=== PATIENT | female | born 1985 | race Caucasian/White ===

== ENCOUNTER → 2016-09-29 | Outpatient (CLI) | payer OTHER ==
--- NOTE | 2016-09-29 11:26 | USB ---
Reason for exam: additional evaluation requested from abnormal screening. History: Patient has history of other cancer at age 22. Family history of breast cancer in paternal aunt, breast cancer in maternal aunt, breast cancer in maternal cousin at age 33, and breast cancer in maternal cousin at age 42. Indicated problem(s): lump or thickening and pain in the left breast. Physical Findings: Nurse did not find any significant physical abnormalities on exam. US Breast BILAT Left breast ultrasound includes all four quadrants, the retroareolar region and axilla. Finding demonstrate no cystic or solid lesion seen. Right breast ultrasound includes all four quadrants, the retroareolar region and axilla. Finding demonstrate no cystic or solid lesion seen. These results were verbally communicated with the patient and result sheet given to the patient on 09/29/16. ASSESSMENT: Negative, BI-RAD 1 RECOMMENDATION: Clinical management of both breasts. Manage patient on a clinical basis.
== END | disposition home or self-care (01) ==
LOC: RADUSWWP 08:44
PROVIDERS: ATTEND Obstetrics & Gynecology
DX: N63 Unspecified lump in breast (principal); N64.4 Mastodynia

== ENCOUNTER 2018-02-10 17:33 | Emergency (ER) | payer OTHER ==
[2018-02-10 18:56] VITALS: RESP 18
[2018-02-10] MEDS ORDERED: diphenhydrAMINE 50 MG/ML 1 ML VIAL IVP STA (20:42)
[2018-02-10] MEDS ORDERED: SODIUM CHLORIDE 0.9% 1,000 ML IV STA (20:42)
[2018-02-10 20:57] LABS: Basophils # (A) 0.1 k/uL (0-0.2); Basophils % (A) 1 %; Eosinophils # (A) 0.4 k/uL (0-0.7); Eosinophils % (A) 2 %; HCT 40.5 % (34.0-46.0); HGB 13.5 gm/dL (11.4-16.0); Lymphocytes # (A) 4.9 k/uL (1.0-4.8); Lymphocytes % (A) 32 %; MCH 29.8 pg (25.0-35.0); MCHC 33.4 g/dL (31.0-37.0); MCV 89.1 fL (80.0-100.0); Mean Platelet Volume 6.7; Monocytes # (A) 0.7 k/uL (0-1.0); Monocytes % (A) 4 %; Neutrophils # (A) 9.3 k/uL (1.3-7.7); Neutrophils % (A) 60 %; Platelet Count 300 k/uL (150-450); RBC 4.55 m/uL (3.80-5.40); RDW 13.2 % (11.5-15.5); WBC 15.5 k/uL (3.8-10.6)
--- NOTE | 2018-02-10 20:57 | ED ---
General Adult HPI - General Chief complaint: Headache Stated complaint: headache Time Seen by Provider: 02/10/18 20:01 Source: patient, RN notes reviewed Mode of arrival: ambulatory Limitations: no limitations - History of Present Illness Initial comments: 32-year-old female presents to the emergency department for a chief complaint of right-sided headache occurring earlier this morning. Patient states she has a history of migraines in the back of her head and has had "shots in her neck" by Dr. Muhammad. Patient states her vision is somewhat blurry in the right eye. She admits to photophobia and sensitivity to sound. Admits to nausea, denies vomiting. Patient states she was seen at a clinic earlier and was supposed to get blood work and a CAT scan done outpatient. She was told that if pain persists to come to the emergency department. Patient states she came to the emergency department instead of getting outpatient labs and CAT scan. Patient denies any trauma in the head. Patient states her uncle had a brain aneurysm in the past. Patient has no other complaints at this time including shortness of breath, chest pain, abdominal pain, nausea or vomiting, headache, or visual changes. - Related Data Home Medications Medication Instructions Recorded Confirmed Acetaminophen [Tylenol] 2,500 mg PO BID 02/10/18 02/10/18 Allergies Allergy/AdvReac Type Severity Reaction Status Date / Time bupropion HCl Allergy Unknown Verified 02/10/18 19:59 [From Wellbutrin] ibuprofen [From Motrin] Allergy Anaphylaxis Verified 02/10/18 19:59 Review of Systems ROS Statement: Those systems with pertinent positive or pertinent negative responses have been documented in the HPI. ROS Other: All systems not noted in ROS Statement are negative. Past Medical History Past Medical History: Cancer, CVA/TIA, Pneumonia Additional Past Medical History / Comment(s): endometriosis, CERIVAL, chronic back pain History of Any Multi-Drug Resistant Organisms: None Reported Past Surgical History: Appendectomy, Cholecystectomy, Hysterectomy, Tubal Ligation Past Psychological History: ADD/ADHD, Anxiety, Depression Smoking Status: Current every day smoker Past Alcohol Use History: Occasional Past Drug Use History: None Reported General Exam Limitations: no limitations General appearance: alert, in no apparent distress Head exam: Present: atraumatic, normocephalic, normal inspection Eye exam: Present: normal appearance, PERRL, EOMI. Absent: scleral icterus, conjunctival injection, periorbital swelling ENT exam: Present: normal exam, normal oropharynx, mucous membranes moist, TM's normal bilaterally, normal external ear exam, other (PMD noted on opening of the jaw. Tenderness to temp oral area) Neck exam: Present: normal inspection, full ROM. Absent: tenderness, meningismus, lymphadenopathy Respiratory exam: Present: normal lung sounds bilaterally. Absent: respiratory distress, wheezes, rales, rhonchi, stridor Cardiovascular Exam: Present: regular rate, normal rhythm, normal heart sounds. Absent: systolic murmur, diastolic murmur, rubs, gallop, clicks Extremities exam: Present: full ROM (Moving all extremities without difficulty) Neurological exam: Present: alert, oriented X3, CN II-XII intact Expanded Patient oriented to: Present: person, place, time Speech: Present: fluid speech Cranial nerves: EOM's Intact: Normal, Tongue Deviation: Normal Cerebellar function: Finger to Nose: Normal Upper motor neuron: Pronator Drift: Normal Sensory exam: Upper Extremity Light Touch: Normal, Upper Extremity Pin Prick: Normal, Lower Extremity Light Touch: Normal, Lower Extremity Pin Prick: Normal Motor strength exam: RUE: 5, LUE: 5, RLE: 5, LLE: 5 Eye Response: (4) open spontaneously Motor Response: (6) obeys commands Verbal Response: (5) oriented Nathaniel Total: 15 Psychiatric exam: Present: normal affect, normal mood Course Vital Signs 02/10/18 18:54 Temperature 97.9 F Pulse Rate 78 Respiratory 18 Rate Blood Pressure 120/83 O2 Sat by Pulse 98 Oximetry Medical Decision Making - Medical Decision Making This is a 32-year-old female with a past medical history for migraines. Patient presents to the emergency department with right-sided frontal headache starting this morning. Patient was seen in a clinic and told to come to the emergency Department if pain worsened or continued. On exam no focal neuro deficits. GCS 15. Patient does complain of blurry vision in the right eye. Patient complains of photophobia and sensitivity to sound. She also admits to nausea. Patient did have pain and tenderness along the right temporalis area ESR and CRP were ordered. ESR 2, CRP 11.2 which are both unremarkable. Patient does have a white count of 15. However normal heart rate and afebrile. Leukocytosis likely reactive. CT showed negative brain with and without evidence of intracranial hemorrhage. 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 Patient's family member at bedside and patient discussed this option which patient ultimately refused knowing the risks of aneurysm and hemorrhage. Patient is ALLERGIC to ibuprofen and is not sure if she can take Toradol. Patient was given morphine and Benadryl and Zofran which did help with patient' s pain. Patient does have a history of migraines although they usually occur in the back of her head. She has seen Dr. Muhammad for this in the past. Patient is likely experiencing a migraine at this time as she has unilateral pain, photophobia and sensitivity to sound along with nausea. She will take Tylenol at home and follow up with primary care or Dr. Muhammad in one to 2 days. Patient will return if she has any worsening symptoms - Lab Data Result diagrams: 02/10/18 20:49 02/10/18 20:49 Lab Results 02/10/18 02/10/18 Range/Units 20:49 20:49 WBC 15.5 H (3.8-10.6) k/uL RBC 4.55 (3.80-5.40) m/uL Hgb 13.5 (11.4-16.0) gm/dL Hct 40.5 (34.0-46.0) % MCV 89.1 (80.0-100.0) fL MCH 29.8 (25.0-35.0) pg MCHC 33.4 (31.0-37.0) g/dL RDW 13.2 (11.5-15.5) % Plt Count 300 (150-450) k/uL Neutrophils % 60 % Lymphocytes % 32 % Monocytes % 4 % Eosinophils % 2 % Basophils % 1 % Neutrophils # 9.3 H (1.3-7.7) k/uL Lymphocytes # 4.9 H (1.0-4.8) k/uL Monocytes # 0.7 (0-1.0) k/uL Eosinophils # 0.4 (0-0.7) k/uL Basophils # 0.1 (0-0.2) k/uL ESR 2 (0-20) mm/hr Sodium 140 (137-145) mmol/L Potassium 4.3 (3.5-5.1) mmol/L Chloride 107 (98-107) mmol/L Carbon Dioxide 27 (22-30) mmol/L Anion Gap 6 mmol/L BUN 14 (7-17) mg/dL Creatinine 0.65 (0.52-1.04) mg/dL Est GFR (CKD-EPI)AfAm >90 (>60 ml/min/1.73 sqM) Est GFR (CKD-EPI)NonAf >90 (>60 ml/min/1.73 sqM) Glucose 94 (74-99) mg/dL Calcium 9.5 (8.4-10.2) mg/dL Total Bilirubin 0.3 (0.2-1.3) mg/dL AST 14 (14-36) U/L ALT 21 (9-52) U/L Alkaline Phosphatase 48 (38-126) U/L C-Reactive Protein 11.2 H (<10.0) mg/L Total Protein 6.0 L (6.3-8.2) g/dL Albumin 3.6 (3.5-5.0) g/dL - Radiology Data Radiology results: report reviewed, image reviewed Disposition Clinical Impression: Headache Disposition: HOME SELF-CARE Instructions: Acute Headache (ED) Additional Instructions: Please follow up with primary care and Dr. Muhammad in one to 2 days. Please return to the emergency department if you have any worsening symptoms. Is patient prescribed a controlled substance at d/c from ED?: No Referrals: Nonstaff,Physician [Primary Care Provider] - 1-2 days Time of Disposition: 22:40
[2018-02-10 21:15] LABS: ALT 21 U/L (9-52); AST 14 U/L (14-36); Albumin 3.6 g/dL (3.5-5.0); Alkaline Phosphatase 48 U/L (38-126); Anion Gap 6 mmol/L; Blood Urea Nitrogen 14 mg/dL (7-17); C Reactive Protein 11.2 mg/L (<10.0); Calcium 9.5 mg/dL (8.4-10.2); Carbon Dioxide 27 mmol/L (22-30); Chloride 107 mmol/L (98-107); Glucose 94 mg/dL (74-99); Potassium 4.3 mmol/L (3.5-5.1); Sodium 140 mmol/L (137-145); Total Bilirubin 0.3 mg/dL (0.2-1.3)
[2018-02-10 21:38] LABS: Erythrocyte Sedimentation Rate 2 mm/hr (0-20)
[2018-02-10] MEDS ORDERED: MORPHINE SULFATE 4 MG/ML SYRINGE IVP STA (21:58)
[2018-02-10] MEDS ORDERED: ONDANSETRON 4 MG/2 ML VIAL IVP STA (21:58)
--- NOTE | 2018-02-10 22:07 | CT ---
EXAMINATION TYPE: CT brain wo con DATE OF EXAM: 02/10/2018 COMPARISON: None HISTORY: headache CT DLP: 1018.6 mGycm. Automated Exposure Control for Dose Reduction was Utilized. TECHNIQUE: CT scan of the head is performed without contrast. FINDINGS: Ventricles and sulci appear normal. There is no mass effect nor midline shift. There is no sign of intracranial hemorrhage. There is opacification of the left maxillary sinus with some expansi on into the nasopharynx. I see no bone destruction. IMPRESSION: Negative CT scan of the brain. Left maxillary sinus disease with possible developing mucocele. There is slight expansion of the medial wall of the left maxillary sinus.
[2018-02-10 23:27] VITALS: BP 123/88; PULSE 80; TEMP 97
== END 2018-02-10 23:27 | disposition home or self-care (01) ==
LOC: EC 17:33
DX: R51 Headache (principal); H53.8 Other visual disturbances; H53.149 Visual discomfort, unspecified; R11.0 Nausea; M54.9 Dorsalgia, unspecified; G89.29 Other chronic pain; F17.200 Nicotine dependence, unspecified, uncomplicated; Z85.848 Personal history of malignant neoplasm of other parts of nervous tissue; Z79.899 Other long term (current) drug therapy; Z88.6 Allergy status to analgesic agent; Z88.8 Allergy status to other drugs, medicaments and biological substances
CPT/HCPCS: 36415; 80053; 85652; 85025; 86140; 70450; 99284; 96374; 96375 ×2; 96361; J2270; J1200; J2405

== ENCOUNTER 2018-02-12 08:51 | Emergency (ER) | payer OTHER ==
[2018-02-12 08:54] VITALS: BP 128/81; PULSE 92; RESP 18; TEMP 97.9
[2018-02-12] MEDS ORDERED: KETOROLAC 60 MG/2 ML VIAL IM STA (09:58)
--- NOTE | 2018-02-12 09:58 | ED ---
General Adult HPI - General Chief complaint: Headache Stated complaint: headache Time Seen by Provider: 02/12/18 09:07 Source: patient, RN notes reviewed Mode of arrival: ambulatory Limitations: no limitations - History of Present Illness Initial comments: Patient 32-year-old female presents emergency room today with chief complaint of a headache. She states it started 4 days ago. Was seen here the emergency room for this headache 2 days ago had a CAT scan obtained. CT did show evidence for sinus infection. Patient states that she's not been getting better at home. They did discuss about LP which she refused. Patient states still expressing pressure upfront. Patient denies any other changes with headache. She admits to history of migraine but does admit that this feels different to her. Patient denies any recent fever, chills, shortness of breath, chest pain, back pain, abdominal pain, nausea or vomiting, numbness or tingling , dysuria or hematuria, constipation or diarrhea, visual changes, or any other complaints. - Related Data Home Medications Medication Instructions Recorded Confirmed Acetaminophen [Tylenol] 2,500 mg PO BID 02/10/18 02/10/18 Previous Rx's Medication Instructions Recorded Amoxicillin/Potassium Clav 1 each PO Q12HR #20 tab 02/12/18 [Augmentin 875-125 Tablet] Fluticasone Propionate [Flonase 1 - 2 spray EA NOSTRIL DAILY 5 02/12/18 Allergy Relief] Days ml Allergies Allergy/AdvReac Type Severity Reaction Status Date / Time bupropion HCl Allergy Unknown Verified 02/12/18 08:54 [From Wellbutrin] ibuprofen [From Motrin] Allergy Anaphylaxis Verified 02/12/18 08:54 Review of Systems ROS Statement: Those systems with pertinent positive or pertinent negative responses have been documented in the HPI. ROS Other: All systems not noted in ROS Statement are negative. Past Medical History Past Medical History: Cancer, CVA/TIA, Pneumonia Additional Past Medical History / Comment(s): endometriosis, CERIVAL, chronic back pain History of Any Multi-Drug Resistant Organisms: None Reported Past Surgical History: Appendectomy, Cholecystectomy, Hysterectomy, Tubal Ligation Past Psychological History: ADD/ADHD, Anxiety, Depression Smoking Status: Current every day smoker Past Alcohol Use History: Occasional Past Drug Use History: None Reported General Exam - General Exam Comments Initial Comments: General: The patient is awake and alert, in no distress, and does not appear acutely ill. Eye: Pupils are equal, round and reactive to light. Extra-ocular movements are intact. No nystagmus. There is normal conjunctiva bilaterally. No signs of icterus. Ears, nose, mouth and throat: There are moist mucous membranes and no oral lesions. Tender over both frontal and maxillary sinuses. Neck: The neck is supple, there is no tenderness or JVD. Cardiovascular: There is a regular rate and rhythm. No murmur, rub or gallop is appreciated. Respiratory: Lungs are clear to auscultation, respirations are non-labored, breath sounds are equal. No wheezes, stridor, rales, or rhonchi. Musculoskeletal: Normal ROM, no tenderness. Sensation intact. Strength 5/5. Pulses equal bilaterally 2+. Neurological: A&O x 3. CN II-XII intact, There are no obvious motor or sensory deficits. Coordination appears grossly intact. Speech is normal. Skin: Skin is warm and dry and no rashes or lesions are noted. Psychiatric: Cooperative, appropriate mood & affect, normal judgment. Limitations: no limitations Course Vital Signs 02/12/18 08:51 Temperature 97.9 F Pulse Rate 92 Respiratory 18 Rate Blood Pressure 128/81 O2 Sat by Pulse 99 Oximetry Medical Decision Making - Medical Decision Making Patient's recent CAT scan was reviewed does show evidence for Left maxillary sinus with possible developing mucocele. Patient does have tenderness over the sinuses. She does admit to headache located in the prone. She does admit to some congestion. Patient did have recent CT 2 days ago. Patient refused LP 2 days ago and states does not want this today. Patient was treated for sinus infection started on antibiotics of Augmentin, Flonase, advised over-the- counter Sudafed and Claritin. Advised follow-up the family doctor tomorrow return here to the emergency room for any other concerns. Patient given dose of Toradol here in the emergency room as she states she's had this in the past. She does admit to an ALLERGY ibuprofen. She states that when she was a child she had problems with her kidneys. She states was no respiratory issues with taking ibuprofen and never needed to be intubated. Disposition Clinical Impression: Acute sinusitis, Headache Disposition: HOME SELF-CARE Condition: Good Instructions: Sinusitis (ED) Additional Instructions: Please use medication as discussed. Please follow-up with family doctor in the next 2 days of symptoms have not improved. Please return to emergency room if the symptoms increase or worsen or for any other concerns. Prescriptions: Amoxicillin/Potassium Clav [Augmentin 875-125 Tablet] 1 each PO Q12HR #20 tab Fluticasone Propionate [Flonase Allergy Relief] 1 - 2 spray EA NOSTRIL DAILY 5 Days ml Is patient prescribed a controlled substance at d/c from ED?: No Referrals: Nonstaff,Physician [Primary Care Provider] - 1-2 days Time of Disposition: 09:57
== END 2018-02-12 10:13 | disposition home or self-care (01) ==
LOC: EC 08:51
DX: J01.90 Acute sinusitis, unspecified (principal); G89.29 Other chronic pain; F17.200 Nicotine dependence, unspecified, uncomplicated; Z88.6 Allergy status to analgesic agent; Z88.8 Allergy status to other drugs, medicaments and biological substances; Z79.891 Long term (current) use of opiate analgesic; Z85.41 Personal history of malignant neoplasm of cervix uteri; Z90.710 Acquired absence of both cervix and uterus
CPT/HCPCS: 99283; 96372; J1885

== ENCOUNTER 2018-03-02 07:03 | Emergency (ER) | payer OTHER ==
[2018-03-02 07:10] VITALS: BP 132/85; TEMP 97.5
--- NOTE | 2018-03-02 07:18 | ED ---
General Adult HPI - General Chief complaint: Extremity Injury, Lower Stated complaint: Poss Broken Foot Time Seen by Provider: 03/02/18 07:12 Source: patient, RN notes reviewed, old records reviewed Mode of arrival: ambulatory Limitations: no limitations - History of Present Illness Initial comments: 32-year-old female presenting for evaluation of left foot pain. Patient was at work approximately one hour ago dropped a staple gun onto her left foot primarily the distal second and third digit. She's had pain in this area. No laceration or abrasion. Patient has been ambulatory. She is concern for may be broken. She has no chronic medical problems or health issues. - Related Data Home Medications Medication Instructions Recorded Confirmed Acetaminophen [Tylenol] 2,500 mg PO BID 02/10/18 02/10/18 Previous Rx's Medication Instructions Recorded Amoxicillin/Potassium Clav 1 each PO Q12HR #20 tab 02/12/18 [Augmentin 875-125 Tablet] Fluticasone Propionate [Flonase 1 - 2 spray EA NOSTRIL DAILY 5 02/12/18 Allergy Relief] Days ml Allergies Allergy/AdvReac Type Severity Reaction Status Date / Time bupropion HCl Allergy Unknown Verified 03/02/18 07:07 [From Wellbutrin] ibuprofen [From Motrin] Allergy Anaphylaxis Verified 03/02/18 07:07 Review of Systems ROS Statement: Those systems with pertinent positive or pertinent negative responses have been documented in the HPI. ROS Other: All systems not noted in ROS Statement are negative. Past Medical History Past Medical History: Cancer, CVA/TIA, Pneumonia Additional Past Medical History / Comment(s): endometriosis, CERIVAL, chronic back pain History of Any Multi-Drug Resistant Organisms: None Reported Past Surgical History: Appendectomy, Cholecystectomy, Hysterectomy, Tubal Ligation Past Psychological History: ADD/ADHD, Anxiety, Depression Smoking Status: Current every day smoker Past Alcohol Use History: Occasional Past Drug Use History: None Reported General Exam Limitations: no limitations General appearance: alert, in no apparent distress Head exam: Present: atraumatic, normocephalic Eye exam: Present: normal appearance, PERRL ENT exam: Present: normal exam Neck exam: Present: normal inspection. Absent: tenderness Respiratory exam: Present: normal lung sounds bilaterally. Absent: respiratory distress Cardiovascular Exam: Present: regular rate, normal rhythm GI/Abdominal exam: Present: soft. Absent: distended, tenderness Extremities exam: Present: other (Left foot, pain with passive range of motion of the second and third digit. There is no swelling nor ecchymosis. No abrasion or laceration. No external signs of trauma. Range of motion at the ankle is within normal limits. There is no proximal injury.) Neurological exam: Present: alert, oriented X3 Skin exam: Present: warm, dry, intact. Absent: erythema Course Vital Signs 03/02/18 07:07 Temperature 97.5 F L Pulse Rate 96 Respiratory 18 Rate Blood Pressure 132/85 O2 Sat by Pulse 100 Oximetry Medical Decision Making - Medical Decision Making 32-year-old female with injury to the left foot probably the second and third toe. X-ray obtained, negative for acute fracture or dislocation. Patient will ice her foot, elevate, take Motrin for pain. Follow-up with primary care physician. May require repeat x-rays if pain persists. Disposition Clinical Impression: Contusion of foot, left Disposition: HOME SELF-CARE Condition: Good Instructions: Foot Contusion (ED) Is patient prescribed a controlled substance at d/c from ED?: No Referrals: Danilo Bui MD [Primary Care Provider] - 1-2 days Time of Disposition: 07:44
[2018-03-02 07:25] VITALS: PULSE 96; RESP 18
--- NOTE | 2018-03-02 07:40 | XR ---
EXAMINATION TYPE: XR foot complete LT DATE OF EXAM: 03/02/2018 CLINICAL HISTORY: Foot pain after injury. TECHNIQUE: Frontal, lateral, and oblique images of the left foot are obtained. COMPARISON: None FINDINGS: There is no acute fracture/dislocation evident in the left foot. Flexion in the toes is pr esent. The joint spaces in the left foot appear within normal limits. Mild diffuse subcutaneous edema along plantar surface is seen. IMPRESSION: There is no acute fracture or dislocation in the left foot.
== END 2018-03-02 08:07 | disposition home or self-care (01) ==
LOC: EC 07:03
DX: S90.32XA Contusion of left foot, initial encounter (principal); F17.200 Nicotine dependence, unspecified, uncomplicated; Z86.73 Personal history of transient ischemic attack (TIA), and cerebral infarction without residual deficits; Z85.41 Personal history of malignant neoplasm of cervix uteri; Z90.49 Acquired absence of other specified parts of digestive tract; Z90.710 Acquired absence of both cervix and uterus; Z98.51 Tubal ligation status; Z79.899 Other long term (current) drug therapy; Z88.6 Allergy status to analgesic agent; Z88.8 Allergy status to other drugs, medicaments and biological substances; W20.8XXA Other cause of strike by thrown, projected or falling object, initial encounter; Y92.69 Other specified industrial and construction area as the place of occurrence of the external cause; Y99.0 Civilian activity done for income or pay
CPT/HCPCS: 99284

== ENCOUNTER 2018-09-14 07:22 | Emergency (ER) | payer OTHER ==
[2018-09-14] MEDS ORDERED: ACETAMINOPHEN TAB 500 MG TAB PO STA (07:47)
--- NOTE | 2018-09-14 08:08 | ED ---
Abdominal Pain HPI - General Chief Complaint: Abdominal Pain Stated Complaint: Abd Pain Time Seen by Provider: 09/14/18 07:29 Source: patient Mode of arrival: ambulatory Limitations: no limitations - History of Present Illness Initial Comments: Patient is a 32-year-old female presenting to the ED with abdominal pain. Patients states pain started 2 days ago with increasing severity. She states the pain started on the left flank and progressed to the suprapubic region. She states the pain is not positional and "it hurts to breathe". She has not taken any medication to relieve the pain. She reports "neon yellow" stools but no hematochezia, constipation, diarrhea, nausea or vomiting. She does report increased urgency, frequency, dysuria and vaginal discharge. She reports being in a monogamous relationship but does have unprotected intercourse. She doesn't have a history of frequent UTIs or kidney stones. Her last period was in 2011. MD Complaint: abdominal pain, flank pain -: days(s) (2 days) Location: LUQ, LLQ, suprapubic, L flank Radiation: none Severity: moderate - Related Data Patient : No Previous Rx's Medication Instructions Recorded Amoxic-Pot Clav 500-125 mg 1 tab PO Q12HR #14 tab 09/14/18 [Augmentin 500-125 mg] Dicyclomine [Bentyl] 20 mg PO QID #21 tablet 09/14/18 Allergies Allergy/AdvReac Type Severity Reaction Status Date / Time bupropion HCl Allergy Unknown Verified 09/14/18 08:04 [From Wellbutrin] ibuprofen [From Motrin] Allergy Anaphylaxis Verified 09/14/18 08:04 methadone Allergy Unknown Verified 09/14/18 08:04 Review of Systems ROS Statement: Those systems with pertinent positive or pertinent negative responses have been documented in the HPI. ROS Other: All systems not noted in ROS Statement are negative. Past Medical History Past Medical History: Cancer, CVA/TIA, Pneumonia Additional Past Medical History / Comment(s): endometriosis, CERIVAL, chronic back pain History of Any Multi-Drug Resistant Organisms: None Reported Past Surgical History: Appendectomy, Cholecystectomy, Hysterectomy, Tubal Ligation Past Psychological History: ADD/ADHD, Anxiety, Depression Smoking Status: Current every day smoker Past Alcohol Use History: Occasional Past Drug Use History: None Reported General Exam Limitations: no limitations General appearance: alert, obese Head exam: Present: atraumatic, normocephalic, normal inspection Respiratory exam: Present: wheezes Cardiovascular Exam: Present: regular rate, normal rhythm, normal heart sounds GI/Abdominal exam: Present: soft, tenderness, normal bowel sounds Neurological exam: Present: alert, altered, oriented X3 Course Vital Signs 09/14/18 07:25 Temperature 97.9 F Pulse Rate 99 Respiratory 18 Rate Blood Pressure 138/89 O2 Sat by Pulse 99 Oximetry Medical Decision Making - Medical Decision Making 32-year-old female presenting for abdominal pain. Urine dip CBC and CMP were ordered. She had elevated white blood cell markers suggesting mild inflammation. Abdomen and pelvis CT with contrast was ordered that is suggestive of mild colitis. Patient was given 20 mg of Bentyl in the ED. She will be discharged with 7 days of Augmentin and Bentyl. Patient was instructed to return if symptoms worsen. - Lab Data Result diagrams: 09/14/18 08:00 09/14/18 08:00 Lab Results 09/14/18 09/14/18 09/14/18 Range/Units 08:00 08:00 08:00 WBC 13.7 H (3.8-10.6) k/uL RBC 4.88 (3.80-5.40) m/uL Hgb 14.2 (11.4-16.0) gm/dL Hct 43.6 (34.0-46.0) % MCV 89.3 (80.0-100.0) fL MCH 29.1 (25.0-35.0) pg MCHC 32.6 (31.0-37.0) g/dL RDW 13.3 (11.5-15.5) % Plt Count 375 (150-450) k/uL Neutrophils % 69 % Lymphocytes % 24 % Monocytes % 4 % Eosinophils % 2 % Basophils % 1 % Neutrophils # 9.4 H (1.3-7.7) k/uL Lymphocytes # 3.3 (1.0-4.8) k/uL Monocytes # 0.5 (0-1.0) k/uL Eosinophils # 0.2 (0-0.7) k/uL Basophils # 0.1 (0-0.2) k/uL Sodium 140 (137-145) mmol/L Potassium 4.5 (3.5-5.1) mmol/L Chloride 109 H (98-107) mmol/L Carbon Dioxide 24 (22-30) mmol/L Anion Gap 7 mmol/L BUN 11 (7-17) mg/dL Creatinine 0.48 L (0.52-1.04) mg/dL Est GFR (CKD-EPI)AfAm >90 (>60 ml/min/1.73 sqM) Est GFR (CKD-EPI)NonAf >90 (>60 ml/min/1.73 sqM) Glucose 89 (74-99) mg/dL Calcium 9.2 (8.4-10.2) mg/dL Total Bilirubin 0.4 (0.2-1.3) mg/dL AST 22 (14-36) U/L ALT 28 (9-52) U/L Alkaline Phosphatase 63 (38-126) U/L Total Protein 6.4 (6.3-8.2) g/dL Albumin 3.9 (3.5-5.0) g/dL Amylase 44 (30-110) U/L Lipase 112 (23-300) U/L Urine Color Light Yellow Urine Appearance Clear (Clear) Urine pH 6.5 (5.0-8.0) Ur Specific [place] 1.015 (1.001-1.035) Urine Protein Negative (Negative) Urine Glucose (UA) Negative (Negative) Urine Ketones Negative (Negative) Urine Blood Negative (Negative) Urine Nitrite Negative (Negative) Urine Bilirubin Negative (Negative) Urine Urobilinogen <2.0 (<2.0) mg/dL Ur Leukocyte Esterase Negative (Negative) Disposition Clinical Impression: Colitis, Abdominal pain Disposition: HOME SELF-CARE Condition: Stable Instructions (If sedation given, give patient instructions): Abdominal Pain (ED) Additional Instructions: Return to emergency department if symptoms worsen Prescriptions: Amoxic-Pot Clav 500-125 mg [Augmentin 500-125 mg] 1 tab PO Q12HR #14 tab Dicyclomine [Bentyl] 20 mg PO QID #21 tablet Is patient prescribed a controlled substance at d/c from ED?: No Referrals: Danilo Bui MD [Primary Care Provider] - 1-2 days Time of Disposition: 11:00
[2018-09-14 08:17] LABS: Basophils # (A) 0.1 k/uL (0-0.2); Basophils % (A) 1 %; Eosinophils # (A) 0.2 k/uL (0-0.7); Eosinophils % (A) 2 %; HCT 43.6 % (34.0-46.0); HGB 14.2 gm/dL (11.4-16.0); Lymphocytes # (A) 3.3 k/uL (1.0-4.8); Lymphocytes % (A) 24 %; MCH 29.1 pg (25.0-35.0); MCHC 32.6 g/dL (31.0-37.0); MCV 89.3 fL (80.0-100.0); Mean Platelet Volume 6.4; Monocytes # (A) 0.5 k/uL (0-1.0); Monocytes % (A) 4 %; Neutrophils # (A) 9.4 k/uL (1.3-7.7); Neutrophils % (A) 69 %; Platelet Count 375 k/uL (150-450); RBC 4.88 m/uL (3.80-5.40); RDW 13.3 % (11.5-15.5); WBC 13.7 k/uL (3.8-10.6)
[2018-09-14 08:18] LABS: Appearance,Urine Clear (Clear); Bilirubin,Urine Negative (Negative); Blood,Urine Negative (Negative); Color,Urine Light Yellow; Glucose,Urine (UA) Negative (Negative); Ketones,Urine Negative (Negative); Leukocyte Esterase,Urine Negative (Negative); Nitrite,Urine Negative (Negative); PH, Urine 6.5 (5.0-8.0); Protein,Urine Negative (Negative); Specific Gravity,Urine 1.015 (1.001-1.035); Urobilinogen,Urine <2.0 mg/dL (<2.0)
[2018-09-14 08:26] LABS: ALT 28 U/L (9-52); AST 22 U/L (14-36); Albumin 3.9 g/dL (3.5-5.0); Alkaline Phosphatase 63 U/L (38-126); Amylase 44 U/L (30-110); Anion Gap 7 mmol/L; Blood Urea Nitrogen 11 mg/dL (7-17); Calcium 9.2 mg/dL (8.4-10.2); Carbon Dioxide 24 mmol/L (22-30); Chloride 109 mmol/L (98-107); Glucose 89 mg/dL (74-99); Lipase 112 U/L (23-300); Potassium 4.5 mmol/L (3.5-5.1); Sodium 140 mmol/L (137-145); Total Bilirubin 0.4 mg/dL (0.2-1.3); Total Protein 6.4 g/dL (6.3-8.2)
--- NOTE | 2018-09-14 09:54 | CT ---
EXAMINATION TYPE: CT abdomen pelvis w con DATE OF EXAM: 09/14/2018 HISTORY: Abdominal pain CT DLP: 1590.1mGycm Automated Exposure Control for Dose Reduction was Utilized. CONTRAST: CT scan of the abdomen and pelvis is performed with IV Contrast, patient injected with 100 ml mL of I sovue 300. COMPARISON: 03/25/2015 FINDINGS: LUNG BASES: No significant abnormality is appreciated. LIVER/GB: Hepatic parenchyma is diffusely hypoattenuated in comparison to that of the spleen, most co mmonly seen in hepatic steatosis. This finding limits evaluation for hepatic masses. No gross evidenc e of hepatic mass is seen. No intrahepatic biliary ductal dilatation. Gallbladder surgically absent. PANCREAS: No significant abnormality is seen. SPLEEN: No significant abnormality is seen. Small splenules are seen adjacent to the [place] spleen. ADRENALS: No significant abnormality is seen. KIDNEYS: No significant abnormality is seen. BOWEL: Prior appendectomy has been performed. There is a long segment slight bowel wall thickening of the sigmoid and descending colon such as on coronal series 202 image 43. This may relate to incomple te distention or mild colitis. UTERUS/ADNEXA: Uterus is surgically absent. Previously seen left ovarian cystic lesion on the exam of 2014 measured up to 3.5 cm and again measures up to 3.5 x 3.2 cm. LYMPH NODES: No greater than 1cm abdominal or pelvic lymph nodes are appreciated. OSSEOUS STRUCTURES: No significant abnormality is seen. IMPRESSION: 1. Very mild long segment bowel wall thickening of the descending and sigmoid colon could relate to i ncomplete distention or mild acute uncomplicated colitis. Correlate with clinical symptoms. 2. Stable left adnexal cystic lesion in comparison to the exam of 2015 measuring up to 3.5 cm. 3. Hepatic steatosis.
[2018-09-14] MEDS ORDERED: DICYCLOMINE 10 MG/ML 2 ML AMP IM STA (10:26)
[2018-09-14 11:20] VITALS: BP 132/81; PULSE 88; RESP 16; TEMP 97.7
== END 2018-09-14 11:19 | disposition home or self-care (01) ==
LOC: EC 07:22
DX: K52.9 Noninfective gastroenteritis and colitis, unspecified (principal); N89.8 Other specified noninflammatory disorders of vagina; R30.0 Dysuria; R39.15 Urgency of urination; F17.200 Nicotine dependence, unspecified, uncomplicated; Z86.73 Personal history of transient ischemic attack (TIA), and cerebral infarction without residual deficits; Z85.41 Personal history of malignant neoplasm of cervix uteri; Z87.01 Personal history of pneumonia (recurrent); Z87.42 Personal history of other diseases of the female genital tract; Z90.49 Acquired absence of other specified parts of digestive tract; Z90.710 Acquired absence of both cervix and uterus; Z98.51 Tubal ligation status; Z88.8 Allergy status to other drugs, medicaments and biological substances
CPT/HCPCS: 36415; 80053; 82150; 83690; 85025; 81003; 74177; 99284; 96372; J0500; Q9967

== ENCOUNTER 2018-12-19 12:49 | Emergency (ER) | payer OTHER ==
[2018-12-19 13:01] VITALS: TEMP 97.9
[2018-12-19] MEDS ORDERED: SODIUM CHLORIDE 0.9% 1,000 ML IV STA (13:09)
[2018-12-19] MEDS ORDERED: SODIUM CHLORIDE 0.9% 500 ML 500 ML IV STA (13:09)
[2018-12-19] MEDS ORDERED: MAG HYDROX/AL HYDROX/SIMETH 30 ML, HYOSCYAMINE ELIXIR 10 ML, CIMETIDINE HCL 300 MG PO STA ×3 (13:26)
[2018-12-19 13:59] LABS: Basophils # (A) 0.1 k/uL (0-0.2); Basophils % (A) 1 %; Eosinophils # (A) 0.3 k/uL (0-0.7); Eosinophils % (A) 2 %; HCT 44.5 % (34.0-46.0); HGB 14.7 gm/dL (11.4-16.0); Lymphocytes # (A) 3.7 k/uL (1.0-4.8); Lymphocytes % (A) 24 %; MCH 28.8 pg (25.0-35.0); MCHC 33.1 g/dL (31.0-37.0); MCV 87.1 fL (80.0-100.0); Mean Platelet Volume 6.4; Monocytes # (A) 0.6 k/uL (0-1.0); Monocytes % (A) 4 %; Neutrophils # (A) 10.7 k/uL (1.3-7.7); Neutrophils % (A) 69 %; Platelet Count 376 k/uL (150-450); RBC 5.11 m/uL (3.80-5.40); RDW 13.3 % (11.5-15.5); WBC 15.5 k/uL (3.8-10.6)
[2018-12-19 14:03] LABS: Appearance,Urine Cloudy (Clear); Bilirubin,Urine Negative (Negative); Blood,Urine Negative (Negative); Color,Urine Yellow; Glucose,Urine (UA) Negative (Negative); Ketones,Urine Negative (Negative); Leukocyte Esterase,Urine Negative (Negative); Mucus,Urine Moderate /hpf; Nitrite,Urine Negative (Negative); PH, Urine 5.5 (5.0-8.0); Protein,Urine Negative (Negative); RBC,Urine <1 /hpf (0-5); Specific Gravity,Urine 1.023 (1.001-1.035); Squamous Epithelial Cell,Urine 8 /hpf (0-4); Urobilinogen,Urine <2.0 mg/dL (<2.0)
[2018-12-19 14:09] LABS: ALT 39 U/L (9-52); AST 35 U/L (14-36); African American GFR (CKD) >90 (>60 ml/min/1.73 sqM); Albumin 4.1 g/dL (3.5-5.0); Alkaline Phosphatase 75 U/L (38-126); Amylase 58 U/L (30-110); Anion Gap 10 mmol/L; Blood Urea Nitrogen 10 mg/dL (7-17); Calcium 9.5 mg/dL (8.4-10.2); Carbon Dioxide 25 mmol/L (22-30); Chloride 104 mmol/L (98-107); Glucose 82 mg/dL (74-99); Potassium 4.3 mmol/L (3.5-5.1); Sodium 139 mmol/L (137-145); Total Bilirubin 0.5 mg/dL (0.2-1.3)
--- NOTE | 2018-12-19 14:18 | ED ---
Chest Pain HPI - General Chief Complaint: Chest Pain Stated Complaint: chest pain, dizziness Time Seen by Provider: 12/19/18 13:09 Source: patient, RN notes reviewed Mode of arrival: ambulatory Limitations: no limitations - History of Present Illness Initial Comments: This a 33-year-old female presents emergency Department chief complaint of nausea vomiting diarrhea. Patient states symptoms started late Tuesday. Patient states it started with nausea and diarrhea. Patient has been vomiting and unable to give him down. Patient states she is a burning sensation from her throat down to her upper stomach. Patient does have a history of GERD but has not taken anything a long period time. Denies any hematemesis or coffee-ground emesis. Denies any melena or hematochezia. Denies any fevers or chills. She states she has no other chest pain other than the burning in her chest. She denies any chance . - Related Data Previous Rx's Medication Instructions Recorded Omeprazole 40 mg PO DAILY #14 capsule. 12/19/18 Ondansetron Odt [Zofran Odt] 4 mg PO Q8HR PRN #10 tab 12/19/18 Allergies Allergy/AdvReac Type Severity Reaction Status Date / Time bupropion HCl Allergy Unknown Verified 12/19/18 14:07 [From Wellbutrin] ibuprofen [From Motrin] Allergy Anaphylaxis Verified 12/19/18 14:07 methadone Allergy Unknown Verified 12/19/18 14:07 Review of Systems ROS Statement: Those systems with pertinent positive or pertinent negative responses have been documented in the HPI. ROS Other: All systems not noted in ROS Statement are negative. EKG Findings - EKG Comments: EKG Findings:: EKG performed at 13:37 normal sinus rhythm rate of 85 SC 158 QRS 90 QT/QTC 386/459 Past Medical History Past Medical History: Cancer, CVA/TIA, Pneumonia Additional Past Medical History / Comment(s): endometriosis, CERIVAL, chronic back pain History of Any Multi-Drug Resistant Organisms: None Reported Past Surgical History: Appendectomy, Cholecystectomy, Hysterectomy, Tubal Ligation Past Psychological History: ADD/ADHD, Anxiety, Depression Smoking Status: Current every day smoker Past Alcohol Use History: Occasional Past Drug Use History: None Reported General Exam Limitations: no limitations General appearance: alert, in no apparent distress Head exam: Present: atraumatic, normocephalic, normal inspection Eye exam: Present: normal appearance, PERRL, EOMI. Absent: scleral icterus, co njunctival injection, periorbital swelling ENT exam: Present: normal exam, normal oropharynx, mucous membranes moist Neck exam: Present: normal inspection, full ROM. Absent: tenderness, meningismus, lymphadenopathy Respiratory exam: Present: normal lung sounds bilaterally. Absent: respiratory distress, wheezes, rales, rhonchi, stridor Cardiovascular Exam: Present: regular rate, normal rhythm, normal heart sounds. Absent: systolic murmur, diastolic murmur, rubs, gallop, clicks GI/Abdominal exam: Present: soft, tenderness (Mild epigastric), normal bowel sounds. Absent: distended, guarding, rebound, rigid Back exam: Absent: CVA tenderness (R), CVA tenderness (L) Neurological exam: Present: alert, oriented X3, CN II-XII intact Skin exam: Present: warm, dry, intact, normal color. Absent: rash Course Vital Signs 12/19/18 12/19/18 12:59 13:10 Temperature 97.9 F Pulse Rate 89 Pulse Rate [ 90 Team Lead ] Respiratory 16 Rate Blood Pressure 137/84 O2 Sat by Pulse 97 Oximetry - Reevaluation(s) Reevaluation #1: Patient reevaluated states that her symptoms have completely resolved with GI cocktail. Chest Pain MDM - MDM 33-year-old female presented for nausea vomiting diarrhea burning of her chest. Her symptoms are related to esophagitis, reflux. Her symptoms did resolve with GI cocktail. Patient will be discharged with Zofran and omeprazole. Return parameters were discussed. Disposition Clinical Impression: Gastroenteritis, Esophagitis, GERD (gastroesophageal reflux disease) Disposition: HOME SELF-CARE Condition: Stable Instructions (If sedation given, give patient instructions): Gastroesophageal Reflux Disease (ED) Additional Instructions: Please return to the Emergency Department if symptoms worsen or any other concerns. Prescriptions: Omeprazole 40 mg PO DAILY #14 capsule. Ondansetron Odt [Zofran Odt] 4 mg PO Q8HR PRN #10 tab PRN Reason: Nausea Is patient prescribed a controlled substance at d/c from ED?: No Referrals: Danilo Bui MD [Primary Care Provider] - 1-2 days Time of Disposition: 14:54
--- NOTE | 2018-12-19 14:36 | XR ---
EXAMINATION TYPE: XR chest 2V DATE OF EXAM: 12/19/2018 COMPARISON: 11/12/2013 HISTORY: Chest pain and dizziness TECHNIQUE: Frontal and lateral views of the chest are obtained. FINDINGS: There is no focal air space opacity, pleural effusion, or pneumothorax seen. The cardiac silhouette size is within normal limits. The osseous structures are intact. IMPRESSION: No acute cardiopulmonary process.
--- NOTE | 2018-12-19 14:39 | XR ---
EXAMINATION TYPE: XR KUB DATE OF EXAM: 12/19/2018 2:33 PM CLINICAL HISTORY: Abdominal pain and dizziness TECHNIQUE: Upright and supine images of the abdomen were obtained. COMPARISON: 03/25/2015. FINDINGS: Cholecystectomy clips are seen. No dilated large or small bowel. Scattered few air-fluid le vels are seen in nondilated bowel, a physiologic amount. No pneumoperitoneum. Very mild dextro scolio sis the lumbar spine. Osseous structures appear intact. Lung bases are well aerated. IMPRESSION: Nonobstructive bowel gas pattern.
[2018-12-19] MEDS ORDERED: METOCLOPRAMIDE 5 MG/ML 2 ML VIAL IVP STA (14:51)
[2018-12-19] MEDS ORDERED: diphenhydrAMINE 50 MG/ML 1 ML VIAL IVP STA (14:51)
[2018-12-19] MEDS ORDERED: FAMOTIDINE 20 MG/2 ML VIAL IV STA (14:52)
[2018-12-19 15:21] VITALS: BP 135/97; PULSE 74; RESP 18
== END 2018-12-19 15:44 | disposition home or self-care (01) ==
LOC: EC 12:49
DX: K52.9 Noninfective gastroenteritis and colitis, unspecified (principal); K21.0 Gastro-esophageal reflux disease with esophagitis; F17.200 Nicotine dependence, unspecified, uncomplicated; Z88.6 Allergy status to analgesic agent; Z88.8 Allergy status to other drugs, medicaments and biological substances; Z86.73 Personal history of transient ischemic attack (TIA), and cerebral infarction without residual deficits
CPT/HCPCS: 36415; 71046; 74018; 80053; 81001; 82150; 83690; 84484; 85025; 93005; 96361; 96374; 96375; 99285

== ENCOUNTER 2019-01-23 08:14 | Emergency (ER) | payer OTHER ==
--- NOTE | 2019-01-23 08:16 | ED ---
Abdominal Pain HPI - General Stated Complaint: rt sided abd pain - History of Present Illness Initial Comments: 33yo female with history of GERD patient presenting today for cc of mid/right upper abdominal pain x 2 days. Patient states she has had a sharp pain in the right to mid upper abdomen for the past 2 days. Patient states it radiates to her back at time. Patient denies chest pain or SOB. Patient states she is not experiencing any nausea vomiting or diarrhea. Patient denies any melena hematochezia. Patient denies any consistent use of NSAIDs or alcohol. Patient denies history of pancreatitis. Patient denies any specific alleviating or aggravating factors. Patient states she does not have a gallbladder. Patient denies any pleuritic pain with deep inspiration. Remaining review of system negative. Upon arrival patient appears well signs of acute distress. - Related Data Previous Rx's Medication Instructions Recorded Pantoprazole Sodium [Protonix] 40 mg PO DAILY 7 Days #14 tab 01/23/19 Allergies Allergy/AdvReac Type Severity Reaction Status Date / Time bupropion HCl Allergy Unknown Verified 01/23/19 09:43 [From Wellbutrin] ibuprofen [From Motrin] Allergy Anaphylaxis Verified 01/23/19 09:43 methadone Allergy Unknown Verified 01/23/19 09:43 Review of Systems ROS Statement: Those systems with pertinent positive or pertinent negative responses have been documented in the HPI. ROS Other: All systems not noted in ROS Statement are negative. Past Medical History Past Medical History: Cancer, CVA/TIA, Pneumonia Additional Past Medical History / Comment(s): endometriosis, CERIVAL, chronic back pain History of Any Multi-Drug Resistant Organisms: None Reported Past Surgical History: Appendectomy, Cholecystectomy, Hysterectomy, Tubal Ligation Past Psychological History: ADD/ADHD, Anxiety, Depression Smoking Status: Current every day smoker Past Alcohol Use History: Occasional Past Drug Use History: None Reported General Exam - General Exam Comments Initial Comments: General: The patient is awake and alert, in no distress, and does not appear acutely ill. Eye: +3 mm pupils are equal, round and reactive to light, extra-ocular movements are intact. No nystagmus. There is normal conjunctiva bilaterally. No signs of icterus. Cardiovascular: There is a regular rate and rhythm. No murmur, rub or gallop is appreciated. Respiratory: Lungs are clear to auscultation, respirations are non-labored, breath sounds are equal. No wheezes, stridor, rales, or rhonchi. Gastrointestinal: Soft, non-distended, tenderness to palpation of the epigastric, mid/right upper quadrant fo the abdomen, which is without masses or organomegaly noted. There is no rebound or guarding present. Bowel sounds are unremarkable. Musculoskeletal: Normal ROM, no tenderness. Strength 5/5. Sensation intact. Radial pulses equal bilaterally 2+. Neurological: A&O x 3. CN II-XII intact, There are no obvious motor or sensory deficits. Coordination appears grossly intact. Speech is normal. Skin: Skin is warm and dry and no rashes or lesions are noted. Psychiatric: Cooperative, appropriate mood & affect, normal judgment. Course Vital Signs 01/23/19 01/23/19 08:16 10:21 Temperature 98.1 F Pulse Rate 90 85 Respiratory 18 14 Rate Blood Pressure 125/86 124/82 O2 Sat by Pulse 99 98 Oximetry Medical Decision Making - Medical Decision Making 33-year-old female presented for chief complaint of upper abdominal pain. Patient has history of previous cholecystectomy. Patient does not appear peritoneal on examination. Patient CT revealed no acute process no pneumoperitoneum. Patient's symptoms appear consistent with possible peptic ulcer. Patient was given Protonix. Patient has previously had a prescription for protonix no current medications. Patient does have history of GERD. I educated patient on proper diet as well as return parameters and importance of GI follow-up patient verbalizes understanding. Patient's laboratory studies are stable. I discussed the case obtained by Dr. Pimentel at this time is agreeable care plan discharge. Patient is agreeable to plan discharge as well. - Lab Data Result diagrams: 01/23/19 08:26 01/23/19 08:26 Lab Results 01/23/19 01/23/19 01/23/19 Range/Units 08:26 08:26 08:26 WBC 15.7 H (3.8-10.6) k/uL RBC 5.11 (3.80-5.40) m/uL Hgb 15.1 (11.4-16.0) gm/dL Hct 44.9 (34.0-46.0) % MCV 87.9 (80.0-100.0) fL MCH 29.6 (25.0-35.0) pg MCHC 33.7 (31.0-37.0) g/dL RDW 14.8 (11.5-15.5) % Plt Count 398 (150-450) k/uL Neutrophils % 65 % Lymphocytes % 27 % Monocytes % 4 % Eosinophils % 2 % Basophils % 1 % Neutrophils # 10.2 H (1.3-7.7) k/uL Lymphocytes # 4.2 (1.0-4.8) k/uL Monocytes # 0.6 (0-1.0) k/uL Eosinophils # 0.4 (0-0.7) k/uL Basophils # 0.1 (0-0.2) k/uL Sodium 139 (137-145) mmol/L Potassium 4.2 (3.5-5.1) mmol/L Chloride 107 (98-107) mmol/L Carbon Dioxide 22 (22-30) mmol/L Anion Gap 10 mmol/L BUN 10 (7-17) mg/dL Creatinine 0.58 (0.52-1.04) mg/dL Est GFR (CKD-EPI)AfAm >90 (>60 ml/min/1.73 sqM) Est GFR (CKD-EPI)NonAf >90 (>60 ml/min/1.73 sqM) Glucose 95 (74-99) mg/dL Calcium 9.3 (8.4-10.2) mg/dL Total Bilirubin 0.2 (0.2-1.3) mg/dL AST 27 (14-36) U/L ALT 31 (9-52) U/L Alkaline Phosphatase 75 (38-126) U/L Total Protein 6.9 (6.3-8.2) g/dL Albumin 4.0 (3.5-5.0) g/dL Lipase 160 (23-300) U/L Urine Color Yellow Urine Appearance Clear (Clear) Urine pH 5.5 (5.0-8.0) Ur Specific [place] 1.015 (1.001-1.035) Urine Protein Negative (Negative) Urine Glucose (UA) Negative (Negative) Urine Ketones Negative (Negative) Urine Blood Negative (Negative) Urine Nitrite Negative (Negative) Urine Bilirubin Negative (Negative) Urine Urobilinogen <2.0 (<2.0) mg/dL Ur Leukocyte Esterase Negative (Negative) Disposition Clinical Impression: Right upper quadrant abdominal pain Disposition: HOME SELF-CARE Condition: Good Instructions (If sedation given, give patient instructions): Peptic Ulcer (ED), Abdominal Pain (ED) Additional Instructions: Please use medication as discussed. Please follow-up with family doctor in the next 2 days, recommend gastroenterology follow-up. Please avoid use of ibuprofen, alcohol, spicy foods, chocolate, coffe. Please return to emergency room if the symptoms increase or worsen or for any other concerns. Prescriptions: Pantoprazole Sodium [Protonix] 40 mg PO DAILY 7 Days #14 tab Is patient prescribed a controlled substance at d/c from ED?: No Referrals: Danilo Bui MD [Primary Care Provider] - 1-2 days Keena Stockton MD [STAFF PHYSICIAN] - 1-2 days Time of Disposition: 09:41
[2019-01-23 08:17] VITALS: TEMP 98.1
[2019-01-23 08:40] LABS: Appearance,Urine Clear (Clear); Basophils # (A) 0.1 k/uL (0-0.2); Basophils % (A) 1 %; Bilirubin,Urine Negative (Negative); Blood,Urine Negative (Negative); Color,Urine Yellow; Eosinophils # (A) 0.4 k/uL (0-0.7); Eosinophils % (A) 2 %; Glucose,Urine (UA) Negative (Negative); HCT 44.9 % (34.0-46.0); HGB 15.1 gm/dL (11.4-16.0); Ketones,Urine Negative (Negative); Leukocyte Esterase,Urine Negative (Negative); Lymphocytes # (A) 4.2 k/uL (1.0-4.8); Lymphocytes % (A) 27 %; MCH 29.6 pg (25.0-35.0); MCHC 33.7 g/dL (31.0-37.0); MCV 87.9 fL (80.0-100.0); Mean Platelet Volume 6.6; Monocytes # (A) 0.6 k/uL (0-1.0); Monocytes % (A) 4 %; Neutrophils # (A) 10.2 k/uL (1.3-7.7); Neutrophils % (A) 65 %; Nitrite,Urine Negative (Negative); PH, Urine 5.5 (5.0-8.0); Platelet Count 398 k/uL (150-450); Protein,Urine Negative (Negative); RBC 5.11 m/uL (3.80-5.40); RDW 14.8 % (11.5-15.5); Specific Gravity,Urine 1.015 (1.001-1.035); Urobilinogen,Urine <2.0 mg/dL (<2.0); WBC 15.7 k/uL (3.8-10.6)
[2019-01-23 08:54] LABS: ALT 31 U/L (9-52); AST 27 U/L (14-36); African American GFR (CKD) >90 (>60 ml/min/1.73 sqM); Alkaline Phosphatase 75 U/L (38-126); Anion Gap 10 mmol/L; Blood Urea Nitrogen 10 mg/dL (7-17); Calcium 9.3 mg/dL (8.4-10.2); Carbon Dioxide 22 mmol/L (22-30); Chloride 107 mmol/L (98-107); Glucose 95 mg/dL (74-99); Potassium 4.2 mmol/L (3.5-5.1); Sodium 139 mmol/L (137-145); Total Bilirubin 0.2 mg/dL (0.2-1.3); Total Protein 6.9 g/dL (6.3-8.2)
--- NOTE | 2019-01-23 09:28 | CT ---
EXAMINATION TYPE: CT abdomen pelvis w con DATE OF EXAM: 01/23/2019 HISTORY: RUQ pain for [address] DLP: 1790.3mGycm Automated Exposure Control for Dose Reduction was Utilized. CONTRAST: CT scan of the abdomen and pelvis is performed with IV Contrast, patient injected with 100 mL of Isov ue 300. COMPARISON: None. FINDINGS: LUNG BASES: No significant abnormality is appreciated. LIVER/GB: Hepatic parenchyma is diffusely hypoattenuated in comparison to that of the spleen, most co mmonly seen in hepatic steatosis. This finding limits evaluation for hepatic masses. Diffuse heteroge neity with geographic areas of more relative sparing are seen throughout the hepatic parenchyma. Ther e is a subtle nodular contour of the inferior right hepatic lobe such as on image 45. No gross eviden ce of hepatic mass is seen. No intrahepatic biliary ductal dilatation. Gallbladder is surgically abse nt. PANCREAS: No significant abnormality is seen. SPLEEN: Splenules are seen adjacent to the [place] spleen. ADRENALS: No significant abnormality is seen. KIDNEYS: No significant abnormality is seen. BOWEL: Appendix is surgically absent. Few scattered colonic diverticula are seen without pericolonic fat stranding. Transverse colon is nondistended. No dilated large or small bowel is seen. Small bowel loops are clustered in the left upper quadrant although bowel is seen in the right lower quadrant an d there is no reversal of the superior mesenteric artery and vein. UTERUS/ADNEXA: Uterus is surgically absent. Smaller size or change in morphology of the left adnexal mass seen on exams dating back to thousand 15. This currently measures 3.0 x 2.5 cm and previously me asured 3.5 x 3.2 cm on the exam of 09/14/2018. LYMPH NODES: No greater than 1cm abdominal or pelvic lymph nodes are appreciated. OSSEOUS STRUCTURES: No significant abnormality is seen. IMPRESSION: 1. Incomplete distention of the transverse colon giving the appearance of bowel wall thickening. This could relate to incomplete distention or mild acute uncomplicated colitis. 2. Moderate degree hepatic steatosis. There is slight nodularity of the hepatic contour and considera tion could be given to nonalcoholic steatohepatitis.
[2019-01-23] MEDS ORDERED: FAMOTIDINE 20 MG TAB PO STA (09:31)
[2019-01-23] MEDS ORDERED: MORPHINE SULFATE 2 MG/ML SYRINGE IVP STA (09:31)
[2019-01-23] MEDS ORDERED: MAG HYDROX/AL HYDROX/SIMETH 30 ML, HYOSCYAMINE ELIXIR 10 ML, CIMETIDINE HCL 300 MG, LID... PO STA ×4 (09:40)
[2019-01-23 10:22] VITALS: BP 124/82; PULSE 85; RESP 14
== END 2019-01-23 10:15 | disposition home or self-care (01) ==
LOC: EC 08:14
DX: R10.11 Right upper quadrant pain (principal); F17.200 Nicotine dependence, unspecified, uncomplicated; Z86.73 Personal history of transient ischemic attack (TIA), and cerebral infarction without residual deficits; Z90.49 Acquired absence of other specified parts of digestive tract; Z90.710 Acquired absence of both cervix and uterus; Z98.51 Tubal ligation status; Z85.9 Personal history of malignant neoplasm, unspecified; Z88.8 Allergy status to other drugs, medicaments and biological substances; Z88.6 Allergy status to analgesic agent; Z88.5 Allergy status to narcotic agent
CPT/HCPCS: 36415; 80053; 83690; 85025; 81003; 74177; 99284; 96374; J2270; Q9967

== ENCOUNTER 2019-01-25 16:30 | Emergency (ER) | payer OTHER ==
[2019-01-25 16:45] VITALS: RESP 18
[2019-01-25] MEDS ORDERED: LIDOCAINE 5% PATCH TOPICAL STA (17:03)
--- NOTE | 2019-01-25 17:06 | ED ---
General Adult HPI - General Chief complaint: Abdominal Pain Stated complaint: Abdominal Pain Time Seen by Provider: 01/25/19 16:48 Source: patient Mode of arrival: ambulatory Limitations: no limitations - History of Present Illness Initial comments: Dictation was produced using [employer] dictation software. please excuse any grammatical, word or spelling errors. Chief Complaint: 33-year-old female with past medical history of CVA, pneumonia, endometriosis, chronic back pain presents with right-sided chest pain. History of Present Illness: 33-year-old female she was seen here 3 days ago for the same complaint. Patient states she has right upper quadrant versus right lower chest pain. Patient is a history of chronic abdominal pain. She has a history of cholecystectomy, appendectomy. States that pain is worse to her right lower anterior chest worse with deep inspiration. Denies any trauma to the area, no cough. No sore throat. Denies any constitutional symptoms. Daughter however has had URI type symptoms. No diarrhea. Denies any nausea or vomiting. Chart review shows that patient was seen here 3 days ago for concerns of peptic ulcer disease at that time she had a CT of the abdomen and pelvis performed showing no acute processes. She describes pain as sharp. It is slightly worse with deep inspiration. The ROS documented in this emergency department record has been reviewed and confirmed by me. Those systems with pertinent positive or negative responses have been documented in the HPI. All other systems are other negative and/or noncontributory. PHYSICAL EXAM: General Impression: Alert and oriented x3, not in acute distress HEENT: Normocephalic atraumatic, extra-ocular movements intact, pupils equal and reactive to light bilaterally, mucous membranes moist. Cardiovascular: Heart regular rate and rhythm, S1&S2 audible, no murmurs, rubs or gallops Chest: Lungs clear to auscultation bilaterally, no rhonchi, no wheeze, no rales, reproducible pain with palpation to the right anterior chest approximately level of T9 anterior axillary line rib, negative Gaming's, abdomen is soft nontender Abdomen: Bowel sounds present, abdomen soft, non-tender, non-distended, no organomegaly Musculoskeletal: Pulses present and equal in all extremities, no peripheral edema Motor: no focal deficits noted Neurological: CN II-XII grossly intact, no focal motor or sensory deficits noted Skin: Intact with no visualized rashes Psych: Normal affect and mood ED course: 33-year-old female presents with chief complaint of right lower chest, right upper quadrant abdominal pain. Vital signs upon arrival shows heart rate of 102, rest of vital signs within acceptable limits. Physical examination is positive for musculoskeletal pain. She has reproducible chest pain with palpation over the right anterior ribs. Abdominal examination is unremarkable. Patient otherwise well-appearing. Laboratory evaluation obtained. Patient is leukocytosis of 13.9 which appears to be patient's baseline. Rest of labs are unremarkable. Chest x-ray shows no acute. EKG is nonacute. Patient reevaluated with mild improvement of symptoms. Clinical presentation consistent with musculoskeletal chest pain. His concerns for costochondritis. She is getting Lidoderm patch. Patient advised follow-up with primary care physician. She is counseled on concerning chest symptoms to warrant return to the emergency department. Patient requested a work note. Work note provided. Patient told to take [id number] analgesics. EKG interpretation: Ventricular rate 92, normal sinus rhythm,. Interval 164, Q is 94, QTC 464. No OR prolongation, no QTC prolongation, no ST or T-wave changes noted. EKG compared to 12/19/2018 showing no changes. Overall, this EKG is unremarkable - Related Data Home Medications Medication Instructions Recorded Confirmed Pantoprazole [Protonix] 40 mg PO DAILY 01/25/19 01/25/19 Allergies Allergy/AdvReac Type Severity Reaction Status Date / Time bupropion HCl Allergy Unknown Verified 01/25/19 16:57 [From Wellbutrin] ibuprofen [From Motrin] Allergy Anaphylaxis Verified 01/25/19 16:57 methadone Allergy Unknown Verified 01/25/19 16:57 Review of Systems ROS Statement: Those systems with pertinent positive or pertinent negative responses have been documented in the HPI. ROS Other: All systems not noted in ROS Statement are negative. Past Medical History Past Medical History: Cancer, CVA/TIA, Pneumonia Additional Past Medical History / Comment(s): endometriosis, CERIVAL, chronic back pain History of Any Multi-Drug Resistant Organisms: None Reported Past Surgical History: Appendectomy, Cholecystectomy, Hysterectomy, Tubal Ligation Past Psychological History: ADD/ADHD, Anxiety, Depression Smoking Status: Current every day smoker Past Alcohol Use History: Occasional Past Drug Use History: None Reported General Exam Limitations: no limitations Course Vital Signs 01/25/19 16:42 Temperature 98.4 F Pulse Rate 102 H Respiratory 18 Rate Blood Pressure 126/75 O2 Sat by Pulse 97 Oximetry Medical Decision Making - Lab Data Result diagrams: 01/25/19 17:50 01/25/19 17:50 Lab Results 01/25/19 01/25/19 Range/Units 17:50 17:50 WBC 13.9 H (3.8-10.6) k/uL RBC 4.88 (3.80-5.40) m/uL Hgb 14.4 (11.4-16.0) gm/dL Hct 43.3 (34.0-46.0) % MCV 88.8 (80.0-100.0) fL MCH 29.4 (25.0-35.0) pg MCHC 33.1 (31.0-37.0) g/dL RDW 14.6 (11.5-15.5) % Plt Count 371 (150-450) k/uL Neutrophils % 68 % Lymphocytes % 25 % Monocytes % 4 % Eosinophils % 2 % Basophils % 1 % Neutrophils # 9.4 H (1.3-7.7) k/uL Lymphocytes # 3.4 (1.0-4.8) k/uL Monocytes # 0.5 (0-1.0) k/uL Eosinophils # 0.3 (0-0.7) k/uL Basophils # 0.1 (0-0.2) k/uL Sodium 138 (137-145) mmol/L Potassium 4.2 (3.5-5.1) mmol/L Chloride 105 (98-107) mmol/L Carbon Dioxide 22 (22-30) mmol/L Anion Gap 11 mmol/L BUN 11 (7-17) mg/dL Creatinine 0.56 (0.52-1.04) mg/dL Est GFR (CKD-EPI)AfAm >90 (>60 ml/min/1.73 sqM) Est GFR (CKD-EPI)NonAf >90 (>60 ml/min/1.73 sqM) Glucose 93 (74-99) mg/dL Calcium 9.5 (8.4-10.2) mg/dL Total Bilirubin 0.2 (0.2-1.3) mg/dL AST 41 H (14-36) U/L ALT 50 (9-52) U/L Alkaline Phosphatase 73 (38-126) U/L Total Protein 6.8 (6.3-8.2) g/dL Albumin 4.0 (3.5-5.0) g/dL Disposition Clinical Impression: Strain of chest wall Disposition: HOME SELF-CARE Condition: Good Instructions (If sedation given, give patient instructions): Chest Pain (ED) Is patient prescribed a controlled substance at d/c from ED?: No Referrals: Danilo Bui MD [Primary Care Provider] - 1-2 days Time of Disposition: 18:42
--- NOTE | 2019-01-25 18:10 | XR ---
EXAMINATION TYPE: XR chest 2V DATE OF EXAM: 01/25/2019 COMPARISON: 12/19/2018 HISTORY: Right-sided pain TECHNIQUE: Frontal and lateral views of the chest are obtained. FINDINGS: Heart and mediastinum are normal. Lungs are clear. Diaphragm is normal. Bony thorax appear s normal. IMPRESSION: Normal chest. No change.
[2019-01-25 18:12] LABS: ALT 50 U/L (9-52); AST 41 U/L (14-36); African American GFR (CKD) >90 (>60 ml/min/1.73 sqM); Alkaline Phosphatase 73 U/L (38-126); Anion Gap 11 mmol/L; Blood Urea Nitrogen 11 mg/dL (7-17); Calcium 9.5 mg/dL (8.4-10.2); Carbon Dioxide 22 mmol/L (22-30); Chloride 105 mmol/L (98-107); Glucose 93 mg/dL (74-99); Potassium 4.2 mmol/L (3.5-5.1); Sodium 138 mmol/L (137-145); Total Bilirubin 0.2 mg/dL (0.2-1.3); Total Protein 6.8 g/dL (6.3-8.2)
[2019-01-25 18:18] LABS: Basophils # (A) 0.1 k/uL (0-0.2); Basophils % (A) 1 %; Eosinophils # (A) 0.3 k/uL (0-0.7); Eosinophils % (A) 2 %; HCT 43.3 % (34.0-46.0); HGB 14.4 gm/dL (11.4-16.0); Lymphocytes # (A) 3.4 k/uL (1.0-4.8); Lymphocytes % (A) 25 %; MCH 29.4 pg (25.0-35.0); MCHC 33.1 g/dL (31.0-37.0); MCV 88.8 fL (80.0-100.0); Mean Platelet Volume 6.7; Monocytes # (A) 0.5 k/uL (0-1.0); Monocytes % (A) 4 %; Neutrophils # (A) 9.4 k/uL (1.3-7.7); Neutrophils % (A) 68 %; Platelet Count 371 k/uL (150-450); RBC 4.88 m/uL (3.80-5.40); RDW 14.6 % (11.5-15.5); WBC 13.9 k/uL (3.8-10.6)
[2019-01-25 18:47] VITALS: BP 125/85; PULSE 90; TEMP 98.8
== END 2019-01-25 18:50 | disposition home or self-care (01) ==
LOC: EC 16:30
DX: S29.011A Strain of muscle and tendon of front wall of thorax, initial encounter (principal); D72.829 Elevated white blood cell count, unspecified; F17.200 Nicotine dependence, unspecified, uncomplicated; Z85.9 Personal history of malignant neoplasm, unspecified; Z86.73 Personal history of transient ischemic attack (TIA), and cerebral infarction without residual deficits; Z90.49 Acquired absence of other specified parts of digestive tract; Z90.710 Acquired absence of both cervix and uterus; Z98.51 Tubal ligation status; Z79.899 Other long term (current) drug therapy; Z88.8 Allergy status to other drugs, medicaments and biological substances; Z88.6 Allergy status to analgesic agent; Z88.5 Allergy status to narcotic agent
CPT/HCPCS: 36415; 71046; 80053; 85025; 93005; 99284

== ENCOUNTER → 2019-12-10 | Outpatient (CLI) | payer OTHER ==
--- NOTE | 2019-12-11 07:32 | US ---
EXAMINATION TYPE: US pelvis complete transvag DATE OF EXAM: 12/10/2019 COMPARISON: None CLINICAL HISTORY: 34-year-old female N83.8 LT OVARIAN MASS. Hx left ovarian mass. Uterus and right o vary removed. TECHNIQUE: Transabdominal sonographic images of the pelvis were acquired. Transvaginal sonographic i mages were medically necessary to better assess the following anatomy: Ovaries Date of LMP: Uterus surgically absent FINDINGS: Uterus is surgically absent. The right ovary is surgically absent. Left Ovary: 3.7 x 3.3 x 2.7 cm. There is a relatively simple-appearing cyst within measuring 2.9 x 2.9 x [address] of 01/23/2019, a lesion was described as measuring 3.0 x 2.5 cm. Adjacent 1.6 cm follicle. No evident adnexal abnormality or cul-de-sac free fluid. IMPRESSION: 1. Status post hysterectomy. The right ovary is also surgically absent. 2. A 2.9 x 2.9 cm cyst of the left ovary. A lesion was described as measuring 3.0 x 2.[address] of 01/23/2019. Consider continued follow-up.
== END | disposition home or self-care (01) ==
LOC: RADUSWWP 16:10
PROVIDERS: ATTEND Obstetrics & Gynecology
DX: N83.202 Unspecified ovarian cyst, left side (principal); Z90.710 Acquired absence of both cervix and uterus
CPT/HCPCS: 76830; 76856

== ENCOUNTER → 2021-06-04 | Outpatient (CLI) | payer OTHER ==
--- NOTE | 2021-06-04 14:55 | XR ---
EXAMINATION TYPE: XR shoulder complete LT, XR clavicle LT DATE OF EXAM: 06/04/2021 CLINICAL HISTORY: Left shoulder an clavicular pain and contusion injury. TECHNIQUE: Three views of the left shoulder are obtained. 2 views left clavicle. COMPARISON: Prior left shoulder x-ray July 15, 2015. FINDINGS: There is no acute fracture/dislocation evident in the left shoulder. The acromioclavicula r and glenohumeral joint spaces remain within normal limits. The visualized ribs remain intact. Over lying bra strap redemonstrated. Images of left clavicle show no acute displaced fracture. The overlying soft tissue is unremarkable. IMPRESSION: There is no acute fracture or dislocation in the left clavicle or the left shoulder.
== END | disposition home or self-care (01) ==
LOC: RADXRMAIN 14:34
PROVIDERS: ATTEND Emergency Medicine
DX: S40.012A Contusion of left shoulder, initial encounter (principal); X58.XXXA Exposure to other specified factors, initial encounter

== ENCOUNTER → 2021-06-11 | Outpatient (CLI) | payer OTHER ==
--- NOTE | 2021-06-11 11:47 | XR ---
EXAMINATION TYPE: XR chest 2V DATE OF EXAM: 06/11/2021 COMPARISON: 06/11/2021 INDICATION: Left upper rib pain from contusion TECHNIQUE: Frontal and lateral views of the chest are obtained. FINDINGS: The heart size is normal. The pulmonary vasculature is normal. The lungs are clear. No pneumothorax is evident. IMPRESSION: 1. No acute pulmonary process.
--- NOTE | 2021-06-11 11:52 | XR ---
EXAMINATION TYPE: XR ribs LT DATE OF EXAM: 06/11/2021 COMPARISON: Chest x-ray same day HISTORY: Left upper rib pain from contusion TECHNIQUE: Left ribs are examined in 2 projections FINDINGS: No acute fractures are evident. Lung windows appear clear. No pneumothorax is evident on th leslie images. IMPRESSION: 1. Normal left ribs
== END | disposition home or self-care (01) ==
LOC: RADXRMAIN 11:17
PROVIDERS: ATTEND Emergency Medicine
DX: S20.212D Contusion of left front wall of thorax, subsequent encounter (principal); X58.XXXD Exposure to other specified factors, subsequent encounter
CPT/HCPCS: 71046

== ENCOUNTER → 2021-07-09 | Outpatient (CLI) | payer OTHER ==
--- NOTE | 2021-07-09 14:23 | MR ---
EXAMINATION TYPE: MR shoulder LT wo con DATE OF EXAM: 07/09/2021 COMPARISON: Radiograph 06/04/2021 HISTORY: 35 year-old female S40.02D, left shoulder contusion, pain, limited movement after hitting it while working 1 month ago TECHNIQUE: Multiplanar, multisequence imaging of the left shoulder is performed without contrast. FINDINGS: The long head biceps tendon is intact and appropriately situated along the bicipital groove. The subscapularis tendon is intact. While the AC joint appears intact, there is mild edema at the distal clavicle and some fluid seen mehdi ng the fibers of the coracoclavicular ligaments. There is minimal intrasubstance change at the footprint of the infraspinatus tendon. No high-grade pa rtial or full-thickness tear of either supraspinatus or infraspinous tendon. Trace effusion within the subacromial/subdeltoid bursa. No atrophy of the rotator cuff musculature. The glenohumeral joint and there is intact. No discrete labral tear given on the radiographic techniq ue and no para labral cyst. Physiologic but humeral joint fluid. No Hill-Sachs deformity or os acromiale. Prominent red marrow is present compatible with patient's relatively young age. No suspicious bone ma rrow replacement. IMPRESSION: 1. While the AC joint appears intact, there is mild edema at the distal clavicle and some fluid along the fibers of the coracoclavicular ligaments. Correlate for a possible healing mild AC joint sprain. 2. Minimal intrasubstance change at the footprint of the infraspinatus tendon. No rotator cuff tear. 3. Trace fluid in the subacromial/subdeltoid bursa may be physiologic or could represent a mild bursi tis. Otherwise, no additional abnormality of the left shoulder is identified.
== END | disposition home or self-care (01) ==
LOC: RADMRIMAIN 12:03
PROVIDERS: ATTEND Emergency Medicine
DX: R60.0 Localized edema (principal)

== ENCOUNTER 2021-10-16 23:40 | Emergency (ER) | payer OTHER ==
[2021-10-16 23:51] VITALS: RESP 16; TEMP 98.1
[2021-10-17 01:02] LABS: Basophils # (A) 0.1 k/uL (0-0.2); Basophils % (A) 1 %; Eosinophils # (A) 0.3 k/uL (0-0.7); Eosinophils % (A) 1 %; HCT 44.2 % (34.0-46.0); HGB 14.5 gm/dL (11.4-16.0); Lymphocytes # (A) 5.5 k/uL (1.0-4.8); Lymphocytes % (A) 29 %; MCH 29.5 pg (25.0-35.0); MCHC 32.8 g/dL (31.0-37.0); MCV 89.8 fL (80.0-100.0); Mean Platelet Volume 7.2; Monocytes # (A) 0.7 k/uL (0-1.0); Monocytes % (A) 4 %; Neutrophils # (A) 11.9 k/uL (1.3-7.7); Neutrophils % (A) 64 %; Platelet Count 407 k/uL (150-450); RBC 4.93 m/uL (3.80-5.40); RDW 13.5 % (11.5-15.5); WBC 18.7 k/uL (3.8-10.6)
[2021-10-17 01:12] LABS: ALT 14 U/L (4-34); AST 16 U/L (14-36); African American GFR (CKD) >90 (>60 ml/min/1.73 sqM); Albumin 4.3 g/dL (3.5-5.0); Alkaline Phosphatase 75 U/L (38-126); Amylase 72 U/L (30-110); Anion Gap 9 mmol/L; Blood Urea Nitrogen 12 mg/dL (7-17); Calcium 9.3 mg/dL (8.4-10.2); Carbon Dioxide 22 mmol/L (22-30); Chloride 105 mmol/L (98-107); Glucose 92 mg/dL (74-99); Lipase 136 U/L (23-300); Non-African American GFR(CKD) >90 (>60 ml/min/1.73 sqM); Potassium 4.3 mmol/L (3.5-5.1); Sodium 136 mmol/L (137-145); Total Bilirubin 0.2 mg/dL (0.2-1.3)
--- NOTE | 2021-10-17 02:32 | US ---
EXAMINATION TYPE: US pelvic complete DATE OF EXAM: 10/17/2021 COMPARISON: NONE CLINICAL HISTORY: pelvic pain, known ovarian mass. TECHNIQUE: Transabdominal Date of LMP: 2011 Patient refused transvaginal ultrasound. EXAM MEASUREMENTS: Uterus: Surgically absent Right Ovary: Surgically absent Left Ovary: 5.9 x 3.7 x 3.4cm 1. Uterus: Surgically absent 2. Endometrium: Surgically absent 3. Right Ovary: Surgically absent 4. Left Ovary: 3 cysts largest measuring 2.7 x 2.4 x 2.7cm Spectral, color and waveform doppler imaging shows good arterial and venous flow within the left ov janis; there is no evidence for ovarian torsion. 5. Bilateral Adnexa: wnl 6. Posterior cul-de-sac: wnl IMPRESSION: Left ovary is enlarged with multiple cysts. No evidence of ovarian torsion. No free fluid.
[2021-10-17 03:43] LABS: Appearance,Urine Cloudy (Clear); Bilirubin,Urine Negative (Negative); Blood,Urine Trace (Negative); Color,Urine Yellow; Glucose,Urine (UA) Negative (Negative); Ketones,Urine Negative (Negative); Leukocyte Esterase,Urine Negative (Negative); Mucus,Urine Many /hpf; Nitrite,Urine Negative (Negative); PH, Urine 5.5 (5.0-8.0); Protein,Urine Trace (Negative); RBC,Urine 2 /hpf (0-5); Specific Gravity,Urine 1.034 (1.001-1.035); Squamous Epithelial Cell,Urine 5 /hpf (0-4); Urobilinogen,Urine <2.0 mg/dL (<2.0); WBC,Urine 2 /hpf (0-5)
[2021-10-17] MEDS ORDERED: MORPHINE SULFATE 4 MG/ML SYRINGE IV STA (03:53)
--- NOTE | 2021-10-17 03:55 | ED ---
Abdominal Pain HPI - General Chief Complaint: Abdominal Pain Stated Complaint: pelvic pain Time Seen by Provider: 10/17/21 03:27 Source: patient Mode of arrival: ambulatory Limitations: no limitations - History of Present Illness MD Complaint: abdominal pain Onset/Timin -: hour(s) Location: LLQ, L flank Radiation: none Migration to: no migration - Related Data Home Medications Medication Instructions Recorded Confirmed Pantoprazole [Protonix] 40 mg PO DAILY 01/25/19 01/25/19 Previous Rx's Medication Instructions Recorded Methocarbamol [Robaxin-750] 750 mg PO TID PRN #30 tablet 10/17/21 Allergies Allergy/AdvReac Type Severity Reaction Status Date / Time bupropion HCl Allergy Unknown Verified 10/16/21 23:48 [From Wellbutrin] ibuprofen [From Motrin] Allergy Anaphylaxis Verified 10/16/21 23:48 methadone Allergy Unknown Verified 10/16/21 23:48 Review of Systems ROS Statement: Those systems with pertinent positive or pertinent negative responses have been documented in the HPI. ROS Other: All systems not noted in ROS Statement are negative. Constitutional: Denies: fever, chills Respiratory: Denies: cough, dyspnea Cardiovascular: Denies: chest pain, palpitations Gastrointestinal: Reports: as per HPI, abdominal pain. Denies: nausea, vomiting, diarrhea, constipation Genitourinary: Denies: dysuria, frequency, hematuria Musculoskeletal: Denies: back pain Skin: Denies: rash, lesions Neurological: Denies: headache, weakness, numbness Past Medical History Past Medical History: Cancer, CVA/TIA, Pneumonia Additional Past Medical History / Comment(s): endometriosis, CERIVAL, chronic back pain History of Any Multi-Drug Resistant Organisms: None Reported Past Surgical History: Appendectomy, Cholecystectomy, Hysterectomy, Tubal Ligation Past Psychological History: ADD/ADHD, Anxiety, Depression Smoking Status: Current every day smoker Past Alcohol Use History: Occasional Past Drug Use History: None Reported General Exam Limitations: no limitations General appearance: alert, in no apparent distress Head exam: Present: atraumatic, normocephalic Eye exam: Present: normal appearance Neck exam: Present: normal inspection Respiratory exam: Present: normal lung sounds bilaterally. Absent: respiratory distress, wheezes, rales, rhonchi, stridor Cardiovascular Exam: Present: regular rate, normal rhythm, normal heart sounds. Absent: systolic murmur, diastolic murmur, rubs, gallop GI/Abdominal exam: Present: soft. Absent: distended, tenderness, guarding, rebound, rigid, mass, pulsatile mass, hernia Extremities exam: Present: normal inspection, normal capillary refill. Absent: pedal edema, calf tenderness Back exam: Present: normal inspection, CVA tenderness (L). Absent: CVA tenderness (R) Neurological exam: Present: alert Skin exam: Present: warm, dry, intact, normal color. Absent: rash Course Vital Signs 10/16/21 10/17/21 10/17/21 23:48 02:51 06:00 Temperature 98.1 F Pulse Rate 98 74 70 Respiratory 16 Rate Blood Pressure 146/94 138/100 141/74 O2 Sat by Pulse 98 98 Oximetry Medical Decision Making - Medical Decision Making Patient is 35-year-old woman with left flank pain. She does have back tenderness. No abdominal tenderness. Obtained computed tomography scan given the leukocytosis. There is no intra-abdominal process evident. Discussed ap propriate further care and follow-up as well as return parameters. - Lab Data Result diagrams: 10/16/21 23:58 10/16/21 23:58 Lab Results 10/16/21 10/16/21 10/17/21 Range/Units 23:58 23:58 03:15 WBC 18.7 H (3.8-10.6) k/uL RBC 4.93 (3.80-5.40) m/uL Hgb 14.5 (11.4-16.0) gm/dL Hct 44.2 (34.0-46.0) % MCV 89.8 (80.0-100.0) fL MCH 29.5 (25.0-35.0) pg MCHC 32.8 (31.0-37.0) g/dL RDW 13.5 (11.5-15.5) % Plt Count 407 (150-450) k/uL MPV 7.2 Neutrophils % 64 % Lymphocytes % 29 % Monocytes % 4 % Eosinophils % 1 % Basophils % 1 % Neutrophils # 11.9 H (1.3-7.7) k/uL Lymphocytes # 5.5 H (1.0-4.8) k/uL Monocytes # 0.7 (0-1.0) k/uL Eosinophils # 0.3 (0-0.7) k/uL Basophils # 0.1 (0-0.2) k/uL Sodium 136 L (137-145) mmol/L Potassium 4.3 (3.5-5.1) mmol/L Chloride 105 (98-107) mmol/L Carbon Dioxide 22 (22-30) mmol/L Anion Gap 9 mmol/L BUN 12 (7-17) mg/dL Creatinine 0.60 (0.52-1.04) mg/dL Est GFR (CKD-EPI)AfAm >90 (>60 ml/min/1.73 sqM) Est GFR (CKD-EPI)NonAf >90 (>60 ml/min/1.73 sqM) Glucose 92 (74-99) mg/dL Calcium 9.3 (8.4-10.2) mg/dL Total Bilirubin 0.2 (0.2-1.3) mg/dL AST 16 (14-36) U/L ALT 14 (4-34) U/L Alkaline Phosphatase 75 (38-126) U/L Total Protein 7.0 (6.3-8.2) g/dL Albumin 4.3 (3.5-5.0) g/dL Amylase 72 (30-110) U/L Lipase 136 (23-300) U/L Urine Color Yellow Urine Appearance Cloudy H (Clear) Urine pH 5.5 (5.0-8.0) Ur Specific [place] 1.034 (1.001-1.035) Urine Protein Trace H (Negative) Urine Glucose (UA) Negative (Negative) Urine Ketones Negative (Negative) Urine Blood Trace H (Negative) Urine Nitrite Negative (Negative) Urine Bilirubin Negative (Negative) Urine Urobilinogen <2.0 (<2.0) mg/dL Ur Leukocyte Esterase Negative (Negative) Urine RBC 2 (0-5) /hpf Urine WBC 2 (0-5) /hpf Ur Squamous Epith Cells 5 H (0-4) /hpf Urine Mucus Many H (None) /hpf Disposition Clinical Impression: Flank pain Disposition: HOME SELF-CARE Condition: Good Instructions (If sedation given, give patient instructions): Flank Pain (ED) Prescriptions: Methocarbamol [Robaxin-750] 750 mg PO TID PRN #30 tablet PRN Reason: pain Is patient prescribed a controlled substance at d/c from ED?: No Referrals: Danilo Bui MD [Primary Care Provider] - 1-2 days
[2021-10-17] MEDS ORDERED: ONDANSETRON 4 MG/2 ML VIAL IVP STA (04:34)
[2021-10-17] MEDS ORDERED: HYDROmorphone 0.5 MG/0.5 ML SYRINGE IVP STA (04:56)
--- NOTE | 2021-10-17 05:28 | CT ---
EXAMINATION TYPE: CT abdomen pelvis wo con DATE OF EXAM: 10/17/2021 COMPARISON: 01/23/2019 HISTORY: PELVIC PAIN AND LEFT SIDED FLANK PAIN CT DLP: 1133.4 mGycm Automated exposure control for dose reduction was used. Images obtained from the diaphragm to the floor the pelvis with no contrast. Lung bases are clear. No pleural effusion. Heart size is normal. No pericardial effusion. Liver spleen and stomach pancreas appear intact. There are clips from cholecystectomy. The bile ducts are not dilated. There are surgical clips in the right lower quadrant. There is no adrenal mass. Kidneys have normal size and contour. There is no hydronephrosis. No eviden ce of a renal calculus. The lumbar vertebrae have normal alignment. No compression fracture. Posterior elements are intact. T he bony pelvis is intact. Hip joints are intact. Bladder distends smoothly. There is no inguinal hernia. No free fluid. No free fluid in the pelvis. N o evidence of a pelvic mass. There is hysterectomy. No evidence of a pelvic mass. There is no mesenteric edema. No ascites or free air. No sign of a bowel obstruction. IMPRESSION: No renal stone or obstruction. Cholecystectomy. No dilated ducts. Clips from apparent appendectomy. Appendix not seen. I do not see a cause for left flank pain.
[2021-10-17 07:31] VITALS: BP 141/74; PULSE 70
== END 2021-10-17 07:31 | disposition home or self-care (01) ==
LOC: EC 23:40
DX: R10.9 Unspecified abdominal pain (principal); F17.200 Nicotine dependence, unspecified, uncomplicated; Z86.73 Personal history of transient ischemic attack (TIA), and cerebral infarction without residual deficits; Z88.6 Allergy status to analgesic agent
CPT/HCPCS: 99284; 96374; 96375; 36415; 80053; 82150; 83690; 85025; 81001; 81025; 76856; 74176; J2270; J2405; J1170; 93976

== ENCOUNTER → 2021-11-03 | Outpatient (CLI) | payer OTHER ==
--- NOTE | 2021-11-03 14:41 | MR ---
MRI CERVICAL SPINE: CLINICAL HISTORY: CERVICALGIA, ANDREA CERVICALGIA, ANDREA TECHNIQUE: Multiplanar, multisequence imaging of the cervical spine is performed without IV contrast. COMPARISON: None. FINDINGS: Sagittal images of the cervical spine show the craniocervical junction to appear within nor mal limits. The cervical and upper thoracic spinal cord is normal in course, caliber, and signal. V ertebral alignment is anatomic. The vertebral body and intravertebral disk heights are normal. The bone marrow signal intensity is within normal limits. Prominent sella turcica noted sagittal image 7, probable normal variant. Axial images show there is no significant focal disk disease, spinal canal stenosis, neural foraminal narrowing, or spinal cord compromise at any cervical level. IMPRESSION: Negative MRI of the cervical spine, no significant abnormality is seen to account for christi herrera's clinical symptoms.
== END | disposition home or self-care (01) ==
LOC: RADMRIMAIN 13:21
PROVIDERS: ATTEND Orthopaedic Surgery
DX: M54.2 Cervicalgia (principal); R51.9 Headache, unspecified
CPT/HCPCS: 72141

== ENCOUNTER 2023-03-22 13:01 | Emergency (ER) | payer OTHER ==
[2023-03-22 13:22] VITALS: TEMP 98.1
[2023-03-22] MEDS ORDERED: ACETAMINOPHEN TAB 325 MG TAB PO STA (13:47)
--- NOTE | 2023-03-22 14:31 | ED ---
Lower Extremity Injury HPI - General Chief Complaint: Extremity Injury, Lower Stated Complaint: FALL Time Seen by Provider: 03/22/23 13:40 Source: patient, EMS, RN notes reviewed Mode of arrival: EMS Limitations: no limitations - History of Present Illness Initial Comments: Patient is 37-year-old female presenting to the ER via EMS with chief complaint of a fall. Patient states she fell while walking out of [employer] this afternoon. She states she felt immediate pain in her right knee. Patient does not remember how she landed. Patient states she is having constant shooting pain from her toes to her right hip. Patient endorses associated numbness and tingling in her right lower leg. Patient states she is unable to bear weight on her right leg due to the pain. Patient denies any other injuries. Patient does admit to having surgery on that knee many years ago. - Related Data Home Medications Medication Instructions Recorded Confirmed No Known Home Medications 02/05/22 02/05/22 Allergies Allergy/AdvReac Type Severity Reaction Status Date / Time amoxicillin Allergy Dyspnea Verified 03/22/23 15:00 bupropion HCl Allergy Unknown Verified 03/22/23 15:00 [From Wellbutrin] ibuprofen [From Motrin] Allergy Anaphylaxis Verified 03/22/23 15:00 methadone Allergy Unknown Verified 03/22/23 15:00 Review of Systems ROS Statement: Those systems with pertinent positive or pertinent negative responses have been documented in the HPI. ROS Other: All systems not noted in ROS Statement are negative. 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", "high WBC count", "optic nerve damage" History of Any Multi-Drug Resistant Organisms: None Reported Past Surgical History: Appendectomy, Cholecystectomy, Hysterectomy, Orthopedic Surgery, Tubal Ligation, Uterine Ablation Additional Past Surgical History / Comment(s): procedure to effect bladder "to remove lining", laparoscopy x 3, EGD colonoscopy, rt knee ACL repair, cortisone injections in left hip Past Anesthesia/Blood Transfusion Reactions: No Reported Reaction Past Psychological History: No Psychological Hx Reported Smoking Status: Current every day smoker Past Alcohol Use History: None Reported Past Drug Use History: None Reported - Past Family History Mother Family Medical History: Myocardial Infarction (NC) Father Family Medical History: Myocardial Infarction ([place]) General Exam Limitations: no limitations General appearance: alert, in no apparent distress Extremities exam: Present: other (Right knee exquisitely tender to palpitation (medial aspect more than lateral), slight edema, limited ROM (knee flexion) due to pain. 2+ dorsalis pedis pulse. Skin abrasion noted. Right hip tender to pa lpitation. ) Course Vital Signs 03/22/23 13:10 Temperature 98.1 F Pulse Rate 92 Respiratory 20 Rate Blood Pressure 115/75 O2 Sat by Pulse 99 Oximetry Medical Decision Making - Medical Decision Making Was pt. sent in by a medical professional or institution (, [facility], DIG[employer] DES[employer]ER, urgent care, hospital, or senior living...) When possible be specific @ -No Did you speak to anyone other than the patient for history (EMS, parent, family, police, friend...)? What history was obtained from this source @ -No Did you review nursing and triage notes (agree or disagree)? Why? @ -I reviewed and agree with nursing and triage notes Were old charts reviewed (outside hosp., previous admission, EMS record, old EKG, old radiological studies, urgent care reports/EKG's, senior living records)? Report findings @ -No old charts were reviewed Differential Diagnosis (chest pain, altered mental status, abdominal pain women, abdominal pain men, vaginal bleeding, weakness, fever, dyspnea, syncope, headache, dizziness, GI bleed, back pain, seizure, CVA, palpatations, mental health, musculoskeletal)? @ -Fracture, dislocation, effusion, contusion EKG interpreted by me (3pts min.). @ -None X-rays interpreted by me (1pt min.). @ -X-ray of right knee shows no acute osseous abnormality. CT interpreted by me (1pt min.). @ -None done U/S interpreted by me (1pt. min.). @ -None done What testing was considered but not performed or refused? (CT, X-rays, U/S, labs)? Why? @ -None What meds were considered but not given or refused? Why? @ -None Did you discuss the management of the patient with other professionals (professionals i.e. , PA, DIGITAL CIRCUIT DESIGNER, lab, RT, psych nurse, social human services assistants, family services assistant, teacher, compliance review officer, wrapper caser)? Give summary @ -No Was smoking cessation discussed for >3mins.? @ -No Was critical care preformed (if so, how long)? @ -No Were there social determinants of health that impacted care today? How? (Homelessness, low income, unemployed, alcoholism, drug addiction, transportation, low edu. Level, literacy, decrease access to med. care, detention, rehab)? @ -No Was there de-escalation of care discussed even if they declined (Discuss DNR or withdrawal of care, Hospice)? DNR status @ -No What co-morbidities impacted this encounter? (DM, HTN, Smoking, COPD, CAD, Cancer, CVA, ARF, Chemo, Hep., AIDS, mental health diagnosis, sleep apnea, morbid obesity)? @ -None Was patient admitted / discharged? Hospital course, mention meds given and route, prescriptions, significant lab abnormalities, going to OR and other pertinent info. @ -Discharged. Patient is a 37-year-old female presenting to the ER with chief complaint of right knee injury. X-rays obtained in the ER showed no acute osseous abnormality. Patient received PO tylenol for pain. Patient will be placed in a knee immobilizer and discharged. Patient advised to weightbear as tolerated. Patient advised to use Tylenol and Motrin for pain. Patient to follow-up with PCP for further care. Undiagnosed new problem with uncertain prognosis? @ -No Drug Therapy requiring intensive monitoring for toxicity (Heparin, Nitro, Insulin, Cardizem)? @ -No Were any procedures done? @ -No Diagnosis/symptom? @ -Right knee pain/sprain/contusion Acute, or Chronic, or Acute on Chronic? @ -Acute Uncomplicated (without systemic symptoms) or Complicated (systemic symptoms)? @ -Uncomplicated Side effects of treatment? @ -No Exacerbation, Progression, or Severe Exacerbation? @ -No Poses a threat to life or bodily function? How? (Chest pain, [place], [place], pneumonia, PE, COPD, DKA, ARF, appy, cholecystitis, CVA, Diverticulitis, Homicidal, Suicidal, threat to staff... and all critical care pts) @ -No - Radiology Data Radiology results: report reviewed, image reviewed Disposition Clinical Impression: Right knee injury Disposition: HOME SELF-CARE Condition: Stable Instructions (If sedation given, give patient instructions): Knee Sprain (ED) Additional Instructions: Please return to the Emergency Department if symptoms worsen or any other concerns. Patient advised follow-up with PCP/or throat pain continues. Patient advised to weight-bear as tolerated and to take [id number] analgesics for pain control. Patient also advised to place area and continue movement so the joint does not stiffen up on her. Is patient prescribed a controlled substance at d/c from ED?: No Referrals: Danilo Bui MD [Primary Care Provider] - 1-2 days Decision Time: 15:00
--- NOTE | 2023-03-22 14:33 | XR ---
EXAMINATION TYPE: XR knee complete RT DATE OF EXAM: 03/22/2023 COMPARISON: None HISTORY: Fall, pain TECHNIQUE: 3 view right knee FINDINGS: No acute fracture or dislocation is evident. Soft tissues are normal. No joint effusion is evident. IMPRESSION: 1. No acute osseous abnormality right knee
[2023-03-22 15:40] VITALS: BP 110/72; PULSE 87; RESP 18
== END 2023-03-22 15:45 | disposition home or self-care (01) ==
LOC: EC 13:01
DX: S89.91XA Unspecified injury of right lower leg, initial encounter (principal); J44.9 Chronic obstructive pulmonary disease, unspecified; F17.200 Nicotine dependence, unspecified, uncomplicated; Z88.0 Allergy status to penicillin; Z88.6 Allergy status to analgesic agent; Z88.8 Allergy status to other drugs, medicaments and biological substances; Z86.73 Personal history of transient ischemic attack (TIA), and cerebral infarction without residual deficits; W18.30XA Fall on same level, unspecified, initial encounter; Y93.01 Activity, walking, marching and hiking
CPT/HCPCS: 73562; 99284; L1830

== ENCOUNTER → 2023-08-12 | Outpatient (CLI) | payer OTHER ==
--- NOTE | 2023-08-12 06:59 | MR ---
EXAMINATION TYPE: MR lumbar spine wo con DATE OF EXAM: 08/12/2023 COMPARISON: NONE HISTORY: Lower back pain since February due to a slip and fall TECHNIQUE: Multiplanar, multisequence imaging of the lumbar spine is performed without IV contrast. FINDINGS: Sagittal images of the lumbar spine show vertebral body heights and alignment to appear sat isfactory. The intervertebral discs demonstrate normal heights and hydration. The conus medullaris i s normal in position and signal ending in inferior L1 level. The bone marrow signal intensity is wit hin normal limits. Axial images show no focal disc disease, or facet degenerative change at any lumbar level. There is no spinal canal stenosis, neural foraminal narrowing, or evidence of nerve root compromise. Paraspina l muscle bulk is maintained. IMPRESSION: Unremarkable study.
== END | disposition home or self-care (01) ==
LOC: RADMRIMAIN 05:51
PROVIDERS: ATTEND Orthopaedic Surgery
DX: M51.26 Other intervertebral disc displacement, lumbar region (principal); M51.36 Other intervertebral disc degeneration, lumbar region; M54.50 Low back pain, unspecified
CPT/HCPCS: 72148

== ENCOUNTER → 2024-10-10 | Outpatient (CLI) | payer BC ==
--- NOTE | 2024-10-10 14:44 | NM ---
EXAMINATION TYPE: NM bone 3 phase DATE OF EXAM: 10/10/2024 COMPARISON: NONE CLINICAL INDICATION: Female, 38 years old with history of M79.671 R leg pain from hip to foot; right knee replacement 10 months ago. Triple phase bone scintigraphy was performed following the injection of 24.0 mCi Tc 99m MDP. Immedia te images and 4 hours post injection images acquired. FINDINGS: There is mild increased radiotracer uptake to the right kidney versus left knee greatest laterally an d dynamic arterial and soft tissue phase images. Soft tissue phase images show asymmetric more promin ent uptake to the left hindfoot and midfoot versus opposite right side. Delayed images show no suspicious asymmetric uptake in the pelvis or either hip. There is asymmetric increased uptake in the right knee versus left knee greatest laterally. A focus of increased radiotra cer uptake distal femoral level left knee is seen on soft tissue and delayed phase images localized t o the anterior distal femur. Symmetric uptake in the bilateral hindfoot and midfoot dorsal aspect is seen on delayed images. IMPRESSION: 1. Three-phase asymmetric radiotracer uptake to the right knee greatest laterally could reflect focal loosening versus infection . 2. Radiotracer uptake dorsal aspect bilateral hindfoot and midfoot levels favors degenerative change. 3. Increased radiotracer uptake anterior aspect distal left femur is suspicious for focal bony lesion . Correlation with radiographs is advised. [facility], , 10/10/2024 2:42 PM
== END | disposition home or self-care (01) ==
LOC: RADNMMAIN 07:47
PROVIDERS: ATTEND Student in an Organized Health Care Education/Training Program
DX: G57.71 Causalgia of right lower limb (principal); R20.2 Paresthesia of skin; M79.671 Pain in right foot; Z96.651 Presence of right artificial knee joint
CPT/HCPCS: 78315; A9503